=== PATIENT | female | born 1940 | race Caucasian/White ===

== ENCOUNTER 2017-10-15 10:22 | Outpatient (CLI) | payer BC, MEDICARE ==
--- NOTE | 2017-10-15 16:08 | MRI ---
MRI OF THE LUMBAR SPINE WITHOUT CONTRAST: Date: 10-15-17 Comparison: None. History: Chronic low back pain, worsening over the last several months, left sided pain, radiculopath y. Technique: Multiplanar, multisequence MR imaging of the lumbar spine provided without contrast media. FINDINGS: The sagittal STIR imaging demonstrates no focal area of osseous marrow edema. Assuming five lumbar type vertebral bodies, there is anterolisthesis at L3-4 measuring 6 mm and at L4 -5 measuring 7 mm. The conus medullaris terminates at T12-L1. T12-L1: Mild disc bulge and disc desiccation with no central canal stenosis. Mild bilateral facet hyp ertrophy with no significant neural foraminal stenosis. L1-2: Mild bilateral facet hypertrophy and hypertrophy of the ligamentum flavum, left greater than ri ght. There is disc space narrowing, disc desiccation and disc bulge with mild central canal stenosis. There is mild bilateral neural foraminal stenosis. L2-3: Disc space narrowing and disc desiccation noted with disc bulge and bilateral facet hypertrophy /hypertrophy of ligamentum flavum. There is mild central canal stenosis with a mild degree of bilater al neural foraminal stenosis. L3-4: There is prominent bilateral facet hypertrophy and hypertrophy of ligamentum flavum, right grea ter than left. There is disc space narrowing with vacuum disc formation and disc bulge. There is yael re central canal stenosis, moderate left neural foraminal stenosis and mild/moderate right neural for aminal stenosis. L4-5: Disc space narrowing and disc desiccation with minimal disc bulge. Bilateral facet hypertrophy and hypertrophy of ligamentum flavum, right greater than left. Mild/moderate central canal stenosis n oted with mild bilateral neural foraminal stenosis, left greater than right. L5-S1: Disc space narrowing, degenerative endplate change, bilateral facet hypertrophy and anterior o steophyte formation noted. No significant central canal or neural foraminal stenosis. There is a small T2 hyperintense lesion within the right lobe of the liver measuring approximately 7- 8 mm, too small to characterize. IMPRESSION: Multilevel degenerative change seen within the lumbar spine, most significant at L3-4 and L4-5. There are additional incidental findings as detailed above. POS: [facility]
== END 2017-10-15 10:23 | disposition home or self-care (01) ==
LOC: SCSMRI 10:22
PROVIDERS: ATTEND Neurological Surgery
DX: M47.26 Other spondylosis with radiculopathy, lumbar region (principal)
CPT/HCPCS: 72148

== ENCOUNTER 2017-11-08 15:07 | Outpatient (CLI) | payer BC, MEDICARE ==
--- NOTE | 2017-11-08 16:08 | RAD ---
AP, LATERAL, FLEXION AND EXTENSION VIEWS OF THE LUMBAR SPINE 11/08/17 HISTORY: Chronic back pain. Four views lumbar spine demonstrate five nonribbearing lumbar vertebrae. There is grade I anterolisth esis of L3 on L4 and L4 on L5. The flexion and extension views do not significantly differ on flexion or extension views. Significant anterior osteophytes seen at the L5-S1 level. IMPRESSION: L3 on L4 and L4 on L5 anterolisthesis which is stable and does not vary on flexion or extension views . POS: [facility]
== END 2017-11-08 15:08 | disposition home or self-care (01) ==
LOC: SCSRAD 15:07
PROVIDERS: ATTEND Nurse Practitioner Family
DX: M47.816 Spondylosis without myelopathy or radiculopathy, lumbar region (principal); M43.16 Spondylolisthesis, lumbar region
CPT/HCPCS: 72120

== ENCOUNTER 2017-11-12 03:18 | Emergency (ER) | payer BC, MEDICARE ==
[2017-11-12] MEDS ORDERED: traMADol HCl 50 MG TAB ONE (04:45)
[2017-11-12] MEDS ORDERED: Ondansetron ODT 8 MG TAB ONE (04:45)
--- NOTE | 2017-11-12 07:40 | RAD ---
3 VIEWS RIGHT SHOULDER: Date: 11/12/17 COMPARISON: 05/31/04. HISTORY: Right shoulder pain after fall. FINDINGS: Three views of the right shoulder show no evidence of acute fracture or dislocation. Mild degenerativ e changes seen in the glenohumeral and acromioclavicular joints. The visualized right thorax is unrem arkable. IMPRESSION: Mild degenerative changes of the right shoulder without acute osseous abnormality. POS: [facility]
--- NOTE | 2017-11-12 07:45 | RAD ---
FOUR VIEWS OF THE RIGHT KNEE: COMPARISON: None. HISTORY: Right knee pain after tripping and falling. FINDINGS: Four views of the right knee show no evidence of acute fracture or dislocation. Moderate tricompartm ental joint space narrowing and osteophyte formation is seen consistent with osteoarthritis. There i s a loose intracapsular osseous body along the medial aspect of the knee joint. IMPRESSION: Moderate right knee osteoarthritis without acute osseous abnormality. POS: [facility]
--- NOTE | 2017-11-12 07:50 | RAD ---
RIGHT RIBS 3 VIEWS CHEST 1 VIEW: HISTORY: Fall. Right chest wall pain. FINDINGS: No displaced rib fracture or pneumothorax are apparent. Cardiac silhouette is magnified by projectio n. Mediastinum is midline with aortic calcification. Extensive calcified pleural plaques are presen t throughout the chest. Left shoulder prosthesis is partially visualized. IMPRESSION: 1. Atherosclerosis. Chronic-type findings. 2. No acute traumatic injury is demonstrated. POS: [facility]
== END 2017-11-12 05:10 | disposition home or self-care (01) ==
LOC: ERS 03:18
DX: S20.211A Contusion of right front wall of thorax, initial encounter (principal); S40.011A Contusion of right shoulder, initial encounter; S80.211A Abrasion, right knee, initial encounter; W18.09XA Striking against other object with subsequent fall, initial encounter; E78.00 Pure hypercholesterolemia, unspecified; F32.9 Major depressive disorder, single episode, unspecified

== ENCOUNTER 2018-02-22 08:21 | Outpatient (CLI) | payer BC, MEDICARE ==
--- NOTE | 2018-02-22 12:17 | MRI ---
MRI BRAIN WITH AND WITHOUT CONTRAST: DATE: 02/22/18. HISTORY: An 78-year-old female with G25.3, myoclonic jerking. COMPARISON: None. TECHNIQUE: Multiple sequences obtained in axial, sagittal, and coronal planes; pre and post IV injection of gado linium-based contrast agent: 14 mL of MultiHance. FINDINGS: At the right cerebral convexity, there is an approximately 2 x 1.5 x 2 cm thin-walled extraaxial cyst in the right post central sulcus, mildly anteriorly displacing the right post central gyrus. There is no solid component and no enhancement. There is diffuse brain parenchymal volume loss of the cerebrum, not unusual for age. The chronic isc hemic white matter changes are mild. No obstructive hydrocephalus. Other than the mild displacement of the gyrus near the right vertex, there is no mass effect. No midline shift. No restricted diffu manda. No evidence of moderate-sized or large infarction of any age. No evidence of recent or remote intraaxial hemorrhage. No abnormal enhancement or mass. IMPRESSION: 1. No acute or aggressive intracranial findings. 2. A small arachnoid cyst in the right post central sulcus. DONAVON Gonzalez POS: [facility]
== END 2018-02-22 08:22 | disposition home or self-care (01) ==
LOC: SCSMRI 08:21
PROVIDERS: ATTEND Psychiatry & Neurology Neurology
DX: G25.3 Myoclonus (principal); G93.0 Cerebral cysts
CPT/HCPCS: 70553; 82565

== ENCOUNTER 2018-03-30 22:27 | Observation (INO) | payer BC, MEDICARE ==
[2018-03-30 23:02] LABS: #Eosinphils 0.2 thou/uL (0.0-0.7); #Lymphocytes 2.3 thou/uL (1.20-3.40); #Monocytes 0.4 thou/uL (0.11-0.59); #Neutrophils 2.7 thou/uL (1.40-6.50); %Basophils 0.8 % (0.0-1.0); %Eosinophils 3.6 % (0.0-10.0); %Lymphocytes 40.7 % (21.0-51.0); %Monocytes 6.5 % (0.0-10.0); %Neutrophils 48.4 % (42.0-75.0); Hemoglobin 11.7 g/dL (12.0-16.0); Mean Corpuscular HGB CONC 32.2 g/dL (32.0-36.0); Mean Corpuscular Volume 96.2 fl (81.0-99.0); Mean Platelet Volume 6.2 fL (7.4-10.4); Platelet Count 247 thou/uL (130-400); RBC Distribution Width 11.8 % (11.5-14.5); Red Blood Cell (RBC) Count 3.78 mill/uL (4.20-5.40); White Blood Cell (WBC) Count 5.7 thou/uL (4.8-10.8)
[2018-03-30 23:22] LABS: ALT (SGPT) 21 U/L (8-55); AST (SGOT) 19 U/L (5-34); Albumin 3.9 g/dL (3.4-4.8); Alkaline Phosphatase 90 U/L (40-150); Anion Gap 11 mmol/L (10-20); BUN (Urea Nitrogen) 21 mg/dL (9.8-20.1); Bilirubin, Total 0.4 mg/dL (0.2-1.2); Calc. Creatinine Clearance 0 mL/min (70-130); Calcium 9.3 mg/dL (7.8-10.44); Carbon Dioxide 28 mmol/L (23-31); Chloride 105 mmol/L (98-107); Estimated GFR-MDRD 50; Globulin 2.8 g/dL (2.4-3.5); Glucose 163 mg/dL (83-110); Potassium 3.8 mmol/L (3.5-5.1); Protein, Total 6.7 g/dL (6.0-8.3); Sodium 140 mmol/L (136-145)
[2018-03-30 23:26] LABS: CKMB 0.9 ng/mL (0-6.6); Troponin I Less than 0.010 ng/mL (< 0.028)
--- NOTE | 2018-03-30 23:37 | RAD ---
PORTABLE CHEST: 03/30/18 HISTORY: Syncope. COMPARISON: 10/14/05. The lungs are clear. No infiltrate. Heart and mediastinum unremarkable. No evidence of vascular conge stion. Left shoulder prosthesis has been placed since prior exam. IMPRESSION: No acute lung process. POS: [facility]
[2018-03-31] MEDS ORDERED: Acetaminophen 325 MG TAB PO PRN ×2 (00:49→01:33)
[2018-03-31] MEDS ORDERED: Bisacodyl 5 MG TAB PO PRN (00:49)
[2018-03-31] MEDS ORDERED: Ondansetron PF 4 MG/2 ML Vial IVP PRN (01:33)
[2018-03-31] MEDS ORDERED: Ondansetron ODT 4 MG TAB SL PRN (01:33)
[2018-03-31 01:49] VITALS: BMI 27.8
--- NOTE | 2018-03-31 01:55 | HP ---
PRIMARY CARE PROVIDER: Ekaterina Boss M.D. PRIMARY DUB ROOM ENGINEER: Dr. Bae. CHIEF COMPLAINT: Syncope. HISTORY OF PRESENT ILLNESS: Ms. Thomas is a pleasant 78-year-old lady, who was seen at [facility] on 03/31/2018 for syncope. She reports that one year ago she started having tremors. She is being followed by neurologist, Dr. Edouard. She was diagnosed with myoclonic jerks and has been started on a medication one week ago. However, she has not taken the medication yet because she was afraid of side effects. She denies any recent change to her medications. She started having dizziness 2 days ago. She sustained a bruise over the left cheek when the washer lid fell on her cheek. She reports dizziness with standing up. Today, she was standing up when she felt lightheaded and subsequently passed out. She denies hitting her head on the floor. She reports that she may have passed out for about 12 seconds. She also reports having 2 cataract surgeries in the last 2 weeks. She denies any new urinary symptoms. She reports having urinary incontinence, which has not changed recently. REVIEW OF SYSTEMS: All other systems reviewed and found to be negative. PAST MEDICAL HISTORY: Coronary artery disease, dyslipidemia, urinary incontinence and degenerative disk disease, and hypertension. PAST SURGICAL HISTORY: PCI with cardiac stent, left arm surgery, and bilateral cataract surgery. PSYCHIATRIC HISTORY: Depression. SOCIAL HISTORY: The patient denies tobacco use, alcohol use or recreational drug use. CODE STATUS: I discussed her code status. She is FULL CODE. Her children will make collective decision if she were to be incapacitated. FAMILY HISTORY: No family history of premature coronary artery disease ALLERGIES: PENICILLIN. CURRENT MEDICATIONS: Duloxetine as needed; metoprolol tartrate, dose unknown at bedtime; Livalo 2 mg daily; aspirin 81 mg daily; and [place] p.r.n. PHYSICAL EXAMINATION: GENERAL: On examination, Ms. Thomas is awake and alert, not in acute distress. VITAL SIGNS: Blood pressure is 110/59, pulse is 69, she is breathing at rate of 20 and saturating 94% on room air. She is afebrile. EYES: No scleral icterus. No conjunctival pallor. ENT: Moist mucosal membranes, no oropharyngeal erythema or exudates. NECK: Supple, nontender, normal range of movement. Trachea is midline. RESPIRATORY: Accessory muscles of breathing are not active. Chest wall movements are symmetric bilaterally. Lungs are clear to auscultation without wheeze, rhonchi or crepitations. CARDIOVASCULAR: S1 and S2 are heard, regular. Peripheral pulses palpable. No carotid bruit, no pericardial rub. ABDOMEN: Soft, nontender, bowel sounds are heard, no hepatomegaly, no splenomegaly. NEUROLOGIC: Cranial nerves II-XII intact. Deep tendon reflexes are 2+. MUSCULOSKELETAL: Power is 5/5 in all 4 extremities. SKIN: Small bruise under the left eye. LYMPHATIC: No cervical lymphadenopathy. PSYCHIATRIC: Normal mood, normal affect, patient is oriented to person, place, and time. LABORATORY DATA AND IMAGING: Ms. Thomas's labs and investigations were reviewed. I reviewed her electrocardiogram, which shows normal sinus rhythm, no ST changes to suggest an acute coronary syndrome. I also reviewed her chest x-ray, which does not show any pulmonary infiltrates. She has normal white count, normal platelet count, normocytic anemia with hemoglobin 11.7, elevated blood urea nitrogen of 21 and unremarkable comprehensive metabolic profile. BNP is normal. Troponin I is normal. ASSESSMENT AND PLAN: Ms. Thomas is a pleasant 78-year-old lady, who was seen at [facility] on 03/31/2018. Her problem list includes: 1. Syncope: Etiology unclear, could be secondary to orthostatic hypotension. We will check orthostatic vitals. We will also monitor on telemetry. Cardiology Service has been consulted by emergency room physician. The patient could also be dehydrated, given her elevation in blood urea nitrogen. We will provide hydration. She reports having a 2D echocardiogram in her medical information officer' s office, but she is unsure as to how long ago that was. I will hold off on ordering echocardiogram. We will order noncontrast CT scan of the brain, given recent trauma to the face. 2. Hypertension: Monitor vital signs and titrate antihypertensives as needed. Watch for hypotension. 3. Coronary artery disease: Appears to be stable. 4. Dyslipidemia: Continue statin. Many thanks for allowing me to participate in your patient's care. Please feel free to contact me with any questions or concerns. LEVEL OF RISK: High. LEVEL OF COMPLEXITY: High. MTDD
[2018-03-31] MEDS ORDERED: Sodium Chloride 0.9% 1,000 ML IV SCH (02:00)
[2018-03-31 02:12] LABS: Troponin I Less than 0.010 ng/mL (< 0.028)
[2018-03-31 05:04] LABS: #Eosinphils 0.1 thou/uL (0.0-0.7); #Lymphocytes 1.9 thou/uL (1.20-3.40); #Monocytes 0.4 thou/uL (0.11-0.59); #Neutrophils 3.3 thou/uL (1.40-6.50); %Basophils 0.2 % (0.0-1.0); %Eosinophils 2.4 % (0.0-10.0); %Lymphocytes 32.9 % (21.0-51.0); %Monocytes 6.8 % (0.0-10.0); %Neutrophils 57.8 % (42.0-75.0); Anion Gap 10 mmol/L (10-20); BUN (Urea Nitrogen) 21 mg/dL (9.8-20.1); Calc. Creatinine Clearance 58 mL/min (70-130); Calcium 9.2 mg/dL (7.8-10.44); Carbon Dioxide 27 mmol/L (23-31); Chloride 107 mmol/L (98-107); Estimated GFR-MDRD 65; Glucose 90 mg/dL (83-110); Hemoglobin 11.1 g/dL (12.0-16.0); Mean Corpuscular HGB CONC 33.2 g/dL (32.0-36.0); Mean Corpuscular Volume 96.2 fl (81.0-99.0); Mean Platelet Volume 6.2 fL (7.4-10.4); Platelet Count 228 thou/uL (130-400); Potassium 4.3 mmol/L (3.5-5.1); RBC Distribution Width 11.8 % (11.5-14.5); Red Blood Cell (RBC) Count 3.47 mill/uL (4.20-5.40); Sodium 140 mmol/L (136-145); White Blood Cell (WBC) Count 5.8 thou/uL (4.8-10.8)
[2018-03-31 05:10] LABS: Troponin I Less than 0.010 ng/mL (< 0.028)
[2018-03-31 07:57] LABS: Bilirubin Negative (Negative); Blood, Urine Negative (Negative); Clarity CLEAR (Clear); Glucose, Urine (Dipstick) Negative (Negative); Leukocyte Moderate (Negative); Nitrite Negative (Negative); Protein, Urine (Dipstick) Negative (Neg-Trace)
[2018-03-31 08:00] LABS: Bacteria/HPF Rare-Few HPF (None Seen); Hyaline Casts/LPF 0-3 HYALINE CAST LPF (0-3 Hyaline); Pathc Cast-AUWi Flag 0.43 (0-2.49)
--- NOTE | 2018-03-31 08:23 | CT ---
PRELIMINARY REPORT/[facility]/EMERGENCY AFTER HOURS PROCEDURE: EXAM: CT Head Without Intravenous Contrast EXAM DATE/TIME: 03/31/2018 1:08 AM CLINICAL HISTORY: 78 years old, female; Signs and symptoms; Syncope and collapse; Patient HX: F80 presents to ed after syncope episode lasting about 12 seconds onset 30 min ago. Daughter claims that PT has been having di zziness the past couple of days. PT reports having body tremors onset 1 year ago. PT reports lighthea dedness for the last few days. PT claims that bruise on cheek occurred prior to the syncope episode. PT reports having a headache the last two mornings, and denies any neck pain. PT reports 2 cataract s urgeries in the past 2 weeks. TECHNIQUE: Axial computed tomography images of the head/brain without intravenous contrast. COMPARISON: No relevant prior studies available. FINDINGS: Brain:Moderate volume lossNo hemorrhage. Mild white matter diseaseNo edema. Ventricles: Normal. No ventriculomegaly. Bones/joints: Normal. No acute fracture. Sinuses: Normal as visualized. No acute sinusitis. Mastoid air cells: Normal as visualized. No mastoid effusion. Soft tissues: Normal. IMPRESSION: No intracranial hemorrhage.Please see discussion above. Thank you for allowing us to participate in the care of your patient. Dictated and Authenticated by: Gary Bey MD 03/31/2018 1:37 AM Central Time ([place] & [place]) FINAL REPORT EMERGENCY AFTER HOURS BRAIN CT WITHOUT IV CONTRAST: Date: 03/31/18 Time: 0109 hours FINDINGS/IMPRESSION: Atrophy and chronic white matter ischemic change. No mass or bleed. Report in agreement with preliminary report given on-call by Chandan. POS: [facility]
[2018-03-31] MEDS ORDERED: diphenhydrAMINE 50 MG CAP PO PRN (11:12)
[2018-03-31] MEDS ORDERED: HYDROcodone/Acetaminophen 5/325 mg Tablet PO PRN (11:12)
[2018-03-31] MEDS ORDERED: Bisacodyl 10 MG SUPP PR PRN (11:12)
[2018-03-31 11:48] VITALS: BP 111/57; TEMP 98.1
--- NOTE | 2018-03-31 12:20 | DIS ---
DATE OF ADMISSION: 03/31/2018 DATE OF DISCHARGE: 03/31/2018 DISCHARGE DISPOSITION: Discharged home. FINAL DIAGNOSES: Syncope and collapse, hypertension, coronary artery disease, dyslipidemia. DISCHARGE MEDICATIONS: Same as her home medications. Ventolin 2 puffs q.6 hours p.r.n., VESIcare 5 mg a day, omeprazole 20 mg a day, aspirin 81 mg a day, Keppra 250 mg twice a day, Wellbutrin 300 mg a day, metoprolol 25 mg at bedtime, hydrocodone 5/325 two tabs q.4 hours p.r.n. pain, Livalo 10 mg p.o . at bedtime, Cymbalta 30 mg p.o. b.i.d. ALLERGIES: IBUPROFEN and PENICILLINS. CODE STATUS: FULL. PENDING AT THE TIME OF DISCHARGE: Nothing. HOSPITAL COURSE: [facility] On day of admission, she stood up, felt lightheaded, and passed out. She was out less than 1 5 seconds by history. Physical examination was unrevealing except for a bruise under her left eye. Admitting laboratory wa s unremarkable. CBC: White count 5.7, hemoglobin 11.7, platelet count 247,000. Comp metabolic prof ile was pertinent only for a blood sugar of 163, repeat was 90. For some reason, cardiac enzymes wer e done, which were normal. Electrocardiogram was unrevealing for any abnormality. Chest x-ray was d one, revealed no cardiomegaly, CHF, or infiltrate. She has a prosthesis in her left shoulder. CAT s can of the brain was done, which showed no intracranial abnormality. Carotid ultrasound showed no st enosis. Antegrade flow in the vertebral-basilar system. Results were discussed with the patient. S he is desirous of going home. CONSULTATIONS: None. PROCEDURES: None. She has been asked to follow up with Dr. Ekaterina Boss, her PCP, within the next week.
--- NOTE | 2018-03-31 12:30 | ULT ---
BILATERAL CAROTID DUPLEX ULTRASOUND: DATE: 03/31/18 HISTORY: Syncope. TECHNIQUE: Field scale ultrasound with color flow and spectral Doppler imaging of the extracranial carotid artery systems performed bilaterally. FINDINGS: There is plaque formation on either side. The peak systolic velocity in the right ICA measures 86 cm/second with an end-diastolic velocity of 1 5 cm/second and a systolic ratio of 0.87. The peak systolic velocity in the left ICA measures 81 cm/second with an end-diastolic velocity of 18 cm/second and a systolic ratio of 0.75. Flow in both vertebral arteries remains antegrade. IMPRESSION: No evidence of hemodynamically significant stenosis. POS: [facility]
[2018-03-31] MEDS ORDERED: levETIRAcetam 500 mg/5 ml Oral Solution PO SCH (21:00)
[2018-03-31] MEDS ORDERED: Atorvastatin Calcium 10 MG TAB PO SCH (21:00)
[2018-03-31] MEDS ORDERED: DULoxetine 30 MG CAP PO SCH (21:00)
[2018-04-01] MEDS ORDERED: Bupropion 150 MG XL TAB PO SCH (09:00)
[2018-04-01] MEDS ORDERED: Aspirin 325 mg Enteric Coated Tablet PO SCH (09:00)
--- NOTE | 2018-05-11 16:59 | EKG ---
Test Reason : AMS/FALL Blood Pressure : / mmHG Vent. Rate : 080 BPM Atrial Rate : 080 BPM P-R Int : 170 ms QRS Dur : 084 ms QT Int : 392 ms P-R-T Axes : 035 019 046 degrees QTc Int : 452 ms Normal sinus rhythm Nonspecific ST and T wave abnormality Abnormal ECG Confirmed by JESSICA MURPHY, FRANCISCO ([id number]), photography editor JESSE CASTANO ([id number]) on 05/11/2018 4:59:17 PM Referred By: JESSICA Confirmed By:FRANCISCO LOPEZ MD
== END 2018-03-31 12:43 | disposition home or self-care (01) ==
LOC: ERS 22:27 → 2SW 03-31 00:10
PROVIDERS: ADMIT Internal Medicine; ATTEND Internal Medicine
DX: R55 Syncope and collapse (principal); I10 Essential (primary) hypertension; I25.10 Atherosclerotic heart disease of native coronary artery without angina pectoris; E78.5 Hyperlipidemia, unspecified; Z88.0 Allergy status to penicillin; Z88.6 Allergy status to analgesic agent; Z79.899 Other long term (current) drug therapy
CPT/HCPCS: 36415; 70450; 71045; 80048; 80053; 81003; 81015; 82553; 83880; 84484; 85025; 93005; 93880; 94760; 96360; 96361; G0378

== ENCOUNTER 2018-10-08 13:23 | Outpatient (CLI) | payer BC, MEDICARE | END 2018-10-08 13:24 | disposition home or self-care (01) | LOC: BICMAMMO 13:23 | PROVIDERS: ATTEND Family Medicine | DX: N63.10 Unspecified lump in the right breast, unspecified quadrant (principal) | CPT/HCPCS: 77066; G0279 ==

== ENCOUNTER 2018-12-13 13:33 | Outpatient (CLI) | payer BC, MEDICARE ==
--- NOTE | 2018-12-13 14:46 | RAD ---
ESOPHAGRAM: DATE: 12/13/2018. HISTORY: Gastroesophageal reflux disease, dysphagia. FINDINGS: There is a small posterior impression on the posterior cervical esophagus likely related to mild extr insic compression from cricopharyngeus muscle. The esophagus otherwise has a normal appearance and t here is no evidence of any mucosal irregularity. A 12.5 mm barium tablet was administered during the exam with transient holdup at the level of the GE junction, but the tablet eventually passed with re peated swallowing. The patient was placed in a right lateral decubitus position and there was eviden ce of gastroesophageal reflux to the level of the upper esophagus. A very small sliding-type hiatal hernia was noted during the exam. Normal esophageal peristalsis was demonstrated during the exam. [employer] chest x-ray demonstrates that the lungs are clear. Cardiac silhouette and pulmonary vasculature are within normal limits. Vascula r calcifications are seen in the thoracic aorta. Postsurgical changes related to left glenohumeral p rosthesis are present. Remote upper right-sided rib fracture is present. IMPRESSION: 1. Very small sliding-type hiatal hernia with gastroesophageal reflux seen to the level of the upper esophagus. 2. Transient holdup of 12.5 mm barium tablet at the level of the gastroesophageal junction. POS: [facility]
== END 2018-12-13 13:34 | disposition home or self-care (01) ==
LOC: RAD 13:33
PROVIDERS: ATTEND Internal Medicine Gastroenterology
DX: K21.9 Gastro-esophageal reflux disease without esophagitis (principal); R13.10 Dysphagia, unspecified; K44.9 Diaphragmatic hernia without obstruction or gangrene
CPT/HCPCS: 74220

== ENCOUNTER 2018-12-17 14:49 | Outpatient (CLI) | payer BC, MEDICARE ==
--- NOTE | 2018-12-17 16:13 | RAD ---
THORACIC SPINE THREE VIEWS: HISTORY: Pain. Spondylosis. FINDINGS: Limited evaluation of the upper thoracic spine in the lateral projection. Based on the image provide d, there is preservation of vertebral body height. No fracture. There is mid thoracic degenerative change with loss of disk space height and osteophyte formation. Endplate sclerosis is noted. Atherosclerosis is identified. IMPRESSION: Degenerative changes in the mid thoracic spine. POS: [facility]
--- NOTE | 2018-12-17 16:14 | RAD ---
LUMBAR SPINE COMPLETE WITH BENDING: HISTORY: Spondylosis of lumbar region. COMPARISON: None. FINDINGS: Exam is limited due to the extensive retained barium throughout the bowel. The lumbar spine is not w ell evaluated due this overlying barium. There appears extensive intraspinous narrowing from L2 to L 5. Degenerative disk space height loss at L5-S1. IMPRESSION: Severely limited exam due to retained barium. Recommend a followup exam after the barium has passed. POS: [facility]
== END 2018-12-17 14:50 | disposition home or self-care (01) ==
LOC: RAD 14:49
PROVIDERS: ATTEND Nurse Practitioner Family
DX: M47.816 Spondylosis without myelopathy or radiculopathy, lumbar region (principal); M47.814 Spondylosis without myelopathy or radiculopathy, thoracic region
CPT/HCPCS: 72072; 72100

== ENCOUNTER 2019-03-12 16:05 | Outpatient (CLI) | payer MEDICARE ==
--- NOTE | 2019-03-12 16:25 | RAD ---
Exam: 3 views thoracic spine HISTORY: Pain. Comparison 12/17/2018 FINDINGS: Stable multilevel degenerative disc disease with loss of disc space height and osteophyte f ormation. No evidence of fracture. Remote right sixth rib fractures noted. IMPRESSION: Stable degenerative changes of the thoracic spine.
--- NOTE | 2019-03-12 16:28 | RAD ---
Exam: Lumbar spine 3 views HISTORY: Spondylolisthesis. Comparison none FINDINGS: Upright lateral extension, lateral flexion and lateral neutral views of the lumbar spine ar e performed. 5 lumbar type vertebral bodies L3-L4: Neutral 3.1 mm anterolisthesis, flexion 5 mm anterolisthesis, extension 2.4 mm anterolisthesis L4-L5: Neutral 7.4 mm anterolisthesis, flexion 10.8 mm anterolisthesis, extension 7.7 mm anterolisthe sis Incidental atherosclerosis of the aorta is noted There are degenerative changes of the distal thoracic spine with osteophyte formation IMPRESSION: 1. Grade 1 anterolisthesis of L3 upon L4 and L4 upon L5. There is change in the degree of spondylolis thesis upon extension and flexion.
== END 2019-03-12 16:06 | disposition home or self-care (01) ==
LOC: RAD 16:05
PROVIDERS: ATTEND Nurse Practitioner Family
DX: M43.16 Spondylolisthesis, lumbar region (principal); M54.6 Pain in thoracic spine; M47.814 Spondylosis without myelopathy or radiculopathy, thoracic region
CPT/HCPCS: 72072; 72100

== ENCOUNTER 2019-11-12 13:09 | Outpatient (CLI) | payer MEDICARE ==
--- NOTE | 2019-11-12 14:40 | MRI ---
MRI LUMBAR SPINE NONCONTRAST: HISTORY: Low back pain. Lumbar radiculopathy. COMPARISON: 10/15/2017. FINDINGS: Appropriate T1 marrow signal intensity of the lumbar vertebrae. Lumbar spine vertebral body height is maintained. There is no fracture. No significant STIR hyperintensity to suggest vertebral body edema or ligamentous injury. Intrinsic T1 hyperintensity with associated T2 and STIR hyperintensity at the T11 level, compatible w ith osseous hemangioma. Appropriate signal intensity of the visualized paraspinal muscles. Exophytic T2 hyperintensity in the anterior right renal cortex measures 1.5 cm. Additional smaller cortical cysts are noted in the left kidney. Conus medullaris terminates at the upper aspect of L1. Spondylolisthesis: L1-L2: 3.4 mm of retrolisthesis. L3-L4: 4.5 mm of anterolisthesis. L4-L5: 6.7 mm of anterolisthesis. T10-T11, T11-T12: No significant central canal stenosis or significant neural foraminal narrowing. T12-L1:Disc desiccation without significant loss of disc space height. No significant central canal s tenosis or significant neural foraminal narrowing. L1-L2:Disc desiccation with minimal loss of disc space height. Broad-based disc bulge, ligament flavu m thickening and facet hypertrophy result in mild central canal stenosis. Mild bilateral foraminal narrowing. Small Schmorl's node along the inferior endplate of L1 and superior end plate of L2. L2-L3:Disc desiccation with mild loss of disc space height. Broad-based disc bulge, ligament flavum t hickening and facet hypertrophy result in moderate central canal stenosis. Moderate bilateral foraminal narrowing. L3-L4:Disc desiccation with mild loss of disc space height. Broad-based disc bulge, ligament flavum t hickening and facet hypertrophy result in moderate to severe central canal stenosis. Mild to moderate bilateral neural foraminal narrowing. Moderate bilateral facet hypertrophy. L4-L5:Indication without severe loss of disc space height. Broad-based disc bulge, ligament flavum th ickening and facet hypertrophy result in moderate central canal stenosis. There is moderate severe bilateral facet hypertrophy. Bilaterally, the neural foramina are patent. L5-S1:Desiccation without significant loss of disc space height. No significant posterior disc of bod y. No significant central canal stenosis. Neural foramina are patent. IMPRESSION: 1. Multilevel degenerative changes of the lumbar spine as detailed above. 2. Spondylolisthesis as detailed above. Transcribed Date/Time: 11/12/2019 3:04 PM
== END 2019-11-12 13:10 | disposition home or self-care (01) ==
LOC: BICMRI 13:09
PROVIDERS: ATTEND Physician Assistant Surgical
DX: M54.5 Low back pain (principal); M79.651 Pain in right thigh; M25.559 Pain in unspecified hip; M47.816 Spondylosis without myelopathy or radiculopathy, lumbar region; M43.16 Spondylolisthesis, lumbar region
CPT/HCPCS: 72148

== ENCOUNTER 2021-10-12 12:30 | Outpatient (CLI) | payer MEDICARE | END 2021-10-12 12:31 | disposition home or self-care (01) | LOC: BICMAMMO 12:30 | PROVIDERS: ATTEND Family Medicine | DX: Z12.31 Encounter for screening mammogram for malignant neoplasm of breast (principal); Z13.820 Encounter for screening for osteoporosis; M81.0 Age-related osteoporosis without current pathological fracture; M85.89 Other specified disorders of bone density and structure, multiple sites | CPT/HCPCS: 77063; 77067; 77080 ==

== ENCOUNTER 2024-09-30 12:21 | Outpatient (CLI) | payer MEDICARE | END 2024-09-30 12:22 | disposition home or self-care (01) | LOC: SCSMRI 12:21 | PROVIDERS: ATTEND Orthopaedic Surgery | DX: M12.811 Other specific arthropathies, not elsewhere classified, right shoulder (principal); S43.014A Anterior dislocation of right humerus, initial encounter; S46.911A Strain of unspecified muscle, fascia and tendon at shoulder and upper arm level, right arm, initial encounter; R60.0 Localized edema; M25.411 Effusion, right shoulder; M62.511 Muscle wasting and atrophy, not elsewhere classified, right shoulder; M19.011 Primary osteoarthritis, right shoulder ==